=== PATIENT | female | born 1960 | race Caucasian/White ===

== ENCOUNTER 2017-03-11 11:47 | Emergency (ER) | payer OTHER ==
[~2017-03-11] VITALS: Wt 59.0 kg
[2017-03-11] MEDS ORDERED: NAPROSYN500 MG PO (12:02)
== END 2017-03-11 13:14 | disposition home or self-care (01) ==
LOC: ED 11:47
DX: S93.402A Sprain of unspecified ligament of left ankle, initial encounter (principal); R03.0 Elevated blood-pressure reading, without diagnosis of hypertension; Z90.49 Acquired absence of other specified parts of digestive tract; Z98.890 Other specified postprocedural states; X58.XXXA Exposure to other specified factors, initial encounter; Y93.89 Activity, other specified; Y92.69 Other specified industrial and construction area as the place of occurrence of the external cause; Y99.9 Unspecified external cause status